=== PATIENT | female | born 1985 | race Caucasian/White ===

== ENCOUNTER → 2019-09-23 | Outpatient (CLI) | payer BC ==
[~2019-09-23] MED LIST: BUDE6HFA IH; HYDR-3454 PO; MINO100C2 PO
--- NOTE | 2019-09-23 09:34 | Diagnostic Imaging Report ---
MRI RT LOWER EXT JOINT W/O TECHNIQUE: Multiplanar, multisequence MR imaging of the right knee was performed without contrast. COMPARISON: None available. INDICATION: Right knee pain after twisting injury approximately 3 months ago. FINDINGS: MENISCI Medial meniscus: Normal. Lateral meniscus: Normal. LIGAMENTS ACL: Intact. PCL: Intact. MCL: Intact. LCL: The lateral collateral ligamentous complex is intact. EXTENSOR MECHANISM The extensor mechanism is intact. CARTILAGE Medial compartment: Medial compartment articular cartilage is well preserved without focal high-grade chondromalacia. Lateral compartment: The lateral compartment articular cartilage is preserved without high-grade chondromalacia. Patellofemoral compartment: The patellofemoral articular cartilage is well preserved without high-grade chondromalacia. BONE No fracture, stress fracture or osteonecrosis. SOFT TISSUE No knee effusion or Winters's cyst. IMPRESSION: 1. No meniscal tear. 2. Cruciate and collateral ligaments are intact. 3. Articular cartilage is normal. Dictated by: Dictated on workstation # [id number]
== END ==
LOC: RAD 08:04
PROVIDERS: ATTEND Nurse Practitioner
DX: S89.81XA Other specified injuries of right lower leg, initial encounter (principal); X50.1XXA Overexertion from prolonged static or awkward postures, initial encounter
CPT/HCPCS: 73721

== ENCOUNTER → 2020-01-13 | Outpatient (CLI) | payer BC ==
--- NOTE | 2020-01-13 11:38 | Diagnostic Imaging Report ---
INDICATION: Routine screening. COMPARISON: 05/19/2014. TECHNIQUE: 2D and 3D bilateral screening mammography was performed with CAD. FINDINGS: Both breasts are heterogeneously dense, limiting the sensitivity of mammography. Numerous microcalcifications in the upper aspect of the left breast mid depth are noted and may be increased since the prior exam although 3D imaging was not performed on the prior. Additional views of these calculations are recommended. The lobulated mass in the medial right breast at mid depth on the prior study is no longer visualized. There is a small circumscribed nodule in the posterior right breast just medial to the nipple line which appears to be new. No other masses are seen. The axillae are unremarkable. IMPRESSION: 1. Increasing left breast calcifications. Additional views of the calcifications on the left are recommended. 2. Circumscribed nodule in the inner right breast at posterior depth. Additional views are recommended. ACR BI-RADS Category 0: Incomplete. (Needs additional imaging evaluation). Result letter will be mailed to the patient. Note: At least 10% of breast cancer is not imaged by mammography. Dictated by: Dictated on workstation # [id number]
== END ==
LOC: RAD 10:20
PROVIDERS: ATTEND Obstetrics & Gynecology
DX: Z12.31 Encounter for screening mammogram for malignant neoplasm of breast (principal); N63.10 Unspecified lump in the right breast, unspecified quadrant; R92.1 Mammographic calcification found on diagnostic imaging of breast
CPT/HCPCS: 77067

== ENCOUNTER → 2020-01-20 | Outpatient (CLI) | payer BC ==
--- NOTE | 2020-01-20 16:41 | Diagnostic Imaging Report ---
INDICATION: Right breast nodule. CORRELATION is made with diagnostic mammogram earlier the same day and screening mammogram from 01/13/2020. Sonographic interrogation of the upper and slightly inner right breast was performed. There is a circumscribed ovoid solid-appearing nodule at the 12:30 location, 9 cm from the nipple. This measures 9 mm x 4 mm x 5 mm. This corresponds in size and location to the mammographic density. This has benign features most likely represents either a complex cyst or fibroadenoma. There is a cyst at the 1:00 location, as well. No other abnormalities are seen. IMPRESSION: 1. BI-RADS Category 3. 1. Circumscribed ovoid nodule at the 12:30 location of the right breast, accounting for the mammographic density. This has fairly benign features and is consistent with either a complex cyst or fibroadenoma. Even so, follow-up right mammogram and right breast ultrasound are recommended in 6 months. In addition, patient will need to undergo six-month follow-up left mammogram for left breast calcifications. ACR BI-RADS Category 3: Probably benign findings. Result letter will be mailed to the patient. Note: At least 10% of breast cancer is not imaged by mammography. Dictated by: Dictated on workstation # [id number]
--- NOTE | 2020-01-20 16:45 | Diagnostic Imaging Report ---
INDICATION: Right breast nodule and left breast calcifications. The patient presents for additional views. CORRELATION is made with recent screening study from 01/13/2020. 2-D and 3-D bilateral diagnostic mammography was performed. This includes spot compression, CC, rolled CC and conventional 90 degree lateral views of the right breast as well as magnification CC and ML views and conventional 90 degree lateral view of the left breast. Right breast images confirm a circumscribed nodule in the upper and slightly inner right breast approximately 10 cm from the nipple. This has benign features and may represent a cyst. Further evaluation with ultrasound is recommended. Images of the left breast demonstrate innumerable microcalcifications. The majority of these appear to be punctate. There appear to be milk of calcium as well. No soft tissue mass is seen. IMPRESSION: BI-RADS 0. 1. Circumscribed nodule upper and slightly inner right breast at posterior depth. Further evaluation with ultrasound is recommended and will be performed today. 2. Numerous calcifications throughout the left breast, likely benign. Even so, follow-up left mammogram in 6 months is recommended to confirm stability. ACR BI-RADS Category 0: Incomplete. (Needs additional imaging evaluation). Result letter will be mailed to the patient. Note: At least 10% of breast cancer is not imaged by mammography. Dictated by: Dictated on workstation # [id number]
== END ==
LOC: RAD 13:54
PROVIDERS: ATTEND Obstetrics & Gynecology
DX: N63.11 Unspecified lump in the right breast, upper outer quadrant (principal); R92.1 Mammographic calcification found on diagnostic imaging of breast
CPT/HCPCS: 77066

== ENCOUNTER → 2020-07-18 | Outpatient (CLI) | payer BC ==
--- NOTE | 2020-07-18 13:50 | Diagnostic Imaging Report ---
INDICATION: Six-month followup right breast nodule and left breast calcifications. COMPARISON: Correlation is made with prior mammograms of 01/13/2020 and 05/19/2014. TECHNIQUE: 2D and 3D bilateral diagnostic mammography was performed with CAD. FINDINGS: Both breasts remain heterogeneously dense, limiting the sensitivity of mammography. A benign-appearing nodule in the upper slightly inner right breast is stable. No new mass is detected. Bilateral breast calcifications, greatest on the left, appear to be stable. The axillae are unremarkable. IMPRESSION: Stable bilateral mammograms. Sonographic followup of the right breast nodule is recommended and will be performed today. Left breast calcifications appear stable and continued followup in 6 months is recommended to show continued stability. ACR BI-RADS Category 0: Incomplete. (Needs additional imaging evaluation). Result letter will be mailed to the patient. Note: At least 10% of breast cancer is not imaged by mammography. Dictated by: Dictated on workstation # [id number]
--- NOTE | 2020-07-18 14:31 | Diagnostic Imaging Report ---
INDICATION: Six-month followup right breast nodule. COMPARISON: Correlation is made with the prior right breast ultrasound from 01/20/2020. FINDINGS: An ovoid, circumscribed hypoechoic nodule at the 12:30 location of the right breast 9 cm from the nipple is again noted. This measures 9 mm x 4 mm x 6 mm, unchanged. No new mass is detected. IMPRESSION: Stable right breast nodule when compared with the prior exam of 6 months earlier. This now shows 6 months of stability. An additional followup mammogram and ultrasound at 6 months are recommended to confirm stability. ACR BI-RADS Category 3: Probably benign findings. Dictated by: Dictated on workstation # [id number]
== END ==
LOC: RAD 13:15
PROVIDERS: ATTEND Obstetrics & Gynecology
DX: N63.10 Unspecified lump in the right breast, unspecified quadrant (principal); R92.1 Mammographic calcification found on diagnostic imaging of breast; R92.8 Other abnormal and inconclusive findings on diagnostic imaging of breast
CPT/HCPCS: 76642; 77066; G0279; 77062

== ENCOUNTER → 2021-02-15 | Outpatient (CLI) | payer BC ==
--- NOTE | 2021-02-15 13:07 | Diagnostic Imaging Report ---
INDICATION: Routine screening. COMPARISON is made with prior mammogram from 07/18/2020 and 01/13/2020. 2-D and 3-D bilateral screening mammography was performed with CAD. Both breast are heterogeneously dense, limiting the sensitivity of mammography. A circumscribed nodule in the superior posterior right breast appears similar to prior exam. There are numerous calcifications throughout both breasts which also appear similar. No new mass is identified. Axillae are unremarkable. IMPRESSION: BI-RADS Category 3 Stable bilateral mammograms. This now shows 12 months of stability. Additional six-month follow-up is recommended to show continued stability. ACR BI-RADS Category 3: Probably benign findings. Result letter will be mailed to the patient. Note: At least 10% of breast cancer is not imaged by mammography. Dictated by: Dictated on workstation # [id number]
== END ==
LOC: RAD 09:47
PROVIDERS: ATTEND Obstetrics & Gynecology
DX: Z12.31 Encounter for screening mammogram for malignant neoplasm of breast (principal)
CPT/HCPCS: 77063; 77067

== ENCOUNTER → 2022-02-21 | Outpatient (CLI) | payer BC, OTHER ==
--- NOTE | 2022-02-21 14:57 | Diagnostic Imaging Report ---
INDICATION: Routine screening. COMPARISON is made with prior mammogram from 02/15/2021 and 07/18/2020. 2-D and 3-D bilateral screening mammography was performed with CAD. Both breasts are heterogeneously dense, limiting the sensitivity of mammography. A benign-appearing nodule in the superior right breast is stable. There is benign-appearing calcifications scattered throughout both breasts. No spiculated mass or malignant-appearing microcalcifications are seen. Axillae are unremarkable. IMPRESSION: BI-RADS Category 2 No mammographic features suspicious for malignancy are identified. ACR BI-RADS Category 2: Benign findings. Result letter will be mailed to the patient. Note: At least 10% of breast cancer is not imaged by mammography. Dictated by: Dictated on workstation # [id number]
== END ==
LOC: RAD 09:05
PROVIDERS: ATTEND Obstetrics & Gynecology
DX: Z12.31 Encounter for screening mammogram for malignant neoplasm of breast (principal)
CPT/HCPCS: 77063; 77067